=== PATIENT | female | born 1980 | race Caucasian/White ===

== ENCOUNTER → 2022-04-16 18:52 | Outpatient (CLI) | payer OTHER, SELFPAY ==
--- NOTE | 2022-04-16 | DI.MRI.S_ITS ---
PROCEDURE: MR KNEE RT WO CON INDICATIONS: RIGHT KNEE PAIN TECHNIQUE: Noncontrast sagittal PD fast spin echo and T2 fast spin echo with fat saturation, sagittal 3-D FLASH with fat saturation; coronal T1 spin echo and PD fast spin echo with fat saturation, and axial PD fast spin echo with fat saturation through the knee. COMPARISON: None. FINDINGS: Image quality: Excellent. There are irregular fluid collections or cysts anterior medial inferior to the knee just anterior to the distal semitendinosus/Gracilis tendon insertions. The largest fluid/cyst measures 1.0 cm AP x 1.3 cm transverse and 1.6 cm cephalocaudal. Several small daughter cysts are seen anterior to the main cyst. Mild soft tissue swelling is noted in the prepatellar/infrapatellar area. Menisci: The medial and lateral menisci demonstrate normal morphology and internal signal. The meniscal root ligaments appear intact. Cruciate ligaments: The anterior and posterior cruciate ligaments appear intact. Medial structures: The medial collateral ligament appears intact. The semimembranosus tendon insertions and meniscocapsular junction appear intact. Visualized portions of the pes anserinus tendons appear normal. No abnormal bursal fluid. Lateral structures: The lateral collateral ligament, long and short heads of the biceps femoris tendon appear intact. The popliteus tendon appears normal. Iliotibial band appears normal. Anterior structures: The quadriceps and patellar tendons appear intact. Patellar alignment is normal. No femoral trochlear dysplasia or ventral trochlear prominence. No edema in the infrapatellar fat pad. Bones and cartilage: No bone marrow contusions or fractures. Mild cartilage with preserved overall cartilage thickness. Subchondral cyst formation is noted in the medial facet of femoral trochlea. Joint space: There is small amount of knee joint fluid. No Hawk's cyst. Normal appearing synovial plicae are incidentally noted. IMPRESSION: 1. Small irregular fluid collections or cysts are present below the knee anterior medial to tibia tubercle and just anterior to the distal semitendinosus and gracilis tendon insertions. The largest fluid/cyst measures 1.0 x 1.3 x 1.6 cm. Several small daughter cysts are seen in the vicinity, connected to the main cyst. Nonspecific soft tissue edema is noted in the prepatellar/infrapatellar area. 2. Trace knee joint effusion. 3. Mild tricompartmental cartilage signal degeneration with preserved cartilage thickness. Dictated by: Ling Page M.D. on 04/17/2022 at 8:50 Approved by: Ling Page M.D. on 04/17/2022 at 9:56
== END ==
PROVIDERS: PCP Internal Medicine; Referring Provider Orthopaedic Surgery; Visit Provider Orthopaedic Surgery
DX: M25.561 Pain in right knee (principal); M25.861 Other specified joint disorders, right knee; M25.461 Effusion, right knee
CPT/HCPCS: 73721

== ENCOUNTER 2025-06-13 18:29 | Emergency (ER) | payer OTHER, SELFPAY ==
[2025-06-13] VITALS (17 sets, daily range): BP systolic 111–147; BP diastolic 56–78; PULSE 73–97; RESP 18–22; TEMP 36.6–36.8; O2SAT 98–100; BMI 29.9
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
--- NOTE | 2025-06-13 18:55 | DI.RAD.S_ITS ---
PROCEDURE: XR PELVIS 1-2V INDICATIONS: trauma to left leg TECHNIQUE: 2 view(s) of the pelvis acquired. COMPARISON: None. FINDINGS: Bones: No fractures or dislocations. No suspicious bony lesions. Soft tissues: Visualized bowel gas pattern is normal. No suspicious soft tissue calcifications. IMPRESSION: No visualized acute fracture or dislocation. However, if clinical concern and/or pain persist, short interval imaging followup in 7-10 days is recommended, as occult injury cannot be definitively excluded. Dictated by: Ara Elkins M.D. on 06/13/2025 at 19:37 Approved by: Ara Elkins M.D. on 06/13/2025 at 19:38
--- NOTE | 2025-06-13 18:55 | DI.RAD.S_ITS ---
PROCEDURE: XR FEMUR LT MIN 2V INDICATIONS: Trauma to left leg, ecchymosis to the lateral greater trocha TECHNIQUE: 2 views of the femur were acquired. COMPARISON: [facility], CR, XR TIBIA FIBULA LT 2V, 06/13/2025, 18:54. [facility], CR, XR ANKLE LT MIN 3V, 06/13/2025, 18:54. FINDINGS: Bones: No fractures or dislocations. No suspicious bony lesions. Soft tissues: No suspicious soft tissue calcifications or masses. IMPRESSION: No visualized acute fracture or dislocation. However, if clinical concern and/or pain persist, short interval imaging followup in 7-10 days is recommended, as occult injury cannot be definitively excluded. Dictated by: Ara Elkins M.D. on 06/13/2025 at 19:43 Approved by: Ara Elkins M.D. on 06/13/2025 at 19:43
--- NOTE | 2025-06-13 18:55 | DI.RAD.S_ITS ---
PROCEDURE: XR TIBIA FIBULA LT 2V INDICATIONS: Trauma left lower extremity TECHNIQUE: 2 views of the tibia and fibula were acquired. COMPARISON: [facility], CR, XR FEMUR LT MIN 2V, 06/13/2025, 18:54. FINDINGS: Bones: No fractures or dislocations. No suspicious bony lesions. Soft tissues: No suspicious soft tissue calcifications or masses. IMPRESSION: No visualized acute fracture or dislocation. However, if clinical concern and/or pain persist, short interval imaging followup in 7-10 days is recommended, as occult injury cannot be definitively excluded. Dictated by: Ara Elkins M.D. on 06/13/2025 at 19:44 Approved by: Ara Elkins M.D. on 06/13/2025 at 19:44
--- NOTE | 2025-06-13 18:55 | DI.RAD.S_ITS ---
PROCEDURE: XR KNEE LT 1TO2V INDICATIONS: Trauma to the left lower extremity TECHNIQUE: 2 views of the knee were acquired. COMPARISON: [facility], CR, XR TIBIA FIBULA LT 2V, 06/13/2025, 18:54. FINDINGS: Bones: No fractures or dislocations. No suspicious bony lesions. Soft tissues: No joint effusion. No suspicious soft tissue calcifications. IMPRESSION: No visualized acute fracture or dislocation. However, if clinical concern and/or pain persist, short interval imaging followup in 7-10 days is recommended, as occult injury cannot be definitively excluded. Dictated by: Ara Elkins M.D. on 06/13/2025 at 19:42 Approved by: Ara Elkins M.D. on 06/13/2025 at 19:42
--- NOTE | 2025-06-13 18:55 | DI.RAD.S_ITS ---
PROCEDURE: XR ANKLE LT MIN 3V INDICATIONS: Trauma left lower extremity TECHNIQUE: 3 views of the ankle were acquired. COMPARISON: [facility], CR, XR TIBIA FIBULA LT 2V, 06/13/2025, 18:54. FINDINGS: Bones: No fractures or dislocations. Ankle mortise is normally aligned. No suspicious bony lesions. Soft tissues: No tibiotalar joint effusion. Achilles tendon appears normal. IMPRESSION: No visualized acute fracture or dislocation. However, if clinical concern and/or pain persist, short interval imaging followup in 7-10 days is recommended, as occult injury cannot be definitively excluded. Dictated by: Ara Elkins M.D. on 06/13/2025 at 19:42 Approved by: Ara Elkins M.D. on 06/13/2025 at 19:43
[2025-06-13] MEDS: HYDROMORPHONE 1 MG INJ 0.5 MG IV (19:05)
[2025-06-13] MEDS: ONDANSETRON 4 MG/2 ML INJ IV (19:05)
[2025-06-13 19:06] LABS: Add Manual Diff / Slide Review NO; Hematocrit 44.8 % (36-46); Hemoglobin 15.0 g/dL (12.0-16.0); Lymphocytes Absolute Auto 2200 /uL (1100-4500); Mean Corpuscular HGB Conc 33.5 % (30-36); Mean Corpuscular Hemoglobin 30.2 PG (26-34); Mean Corpuscular Volume 90.1 fL (80-100); Platelet Count 454 X10^3/uL (150-400)
[2025-06-13 19:07] LABS: INR 1.0 (0.9-1.3); Prothrombin Time 11.1 SECONDS (9.4-12.5)
[2025-06-13 19:10] LABS: PTT Partial Thromboplastin Tim 26 SECONDS (25.1-36.5); Pregnancy Test Serum,Qual Negative (Negative)
[2025-06-13 19:12] LABS: Alanine Aminotransferase 21 IU/L (<35); Albumin 5.0 g/dL (3.5-5.0); Albumin Globulin Ratio 1.3 (1.0-2.8); Alkaline Phosphatase 65 U/L (38-126); Blood Urea Nitrogen 9 mg/dL (7-17); Calcium 9.6 mg/dL (8.4-10.2); Carbon Dioxide 22 mmol/L (22-32); Chloride 104 mmol/L (98-107); Estimated Glomerular Filt Rate > 60 mL/min (>60); Ethanol (ETOH) < 10 mg/dL (<10); Globulin 3.8 g/dL (1.7-4.1); Glucose 104 mg/dL (70-99); HEMOLYSIS 20 (0-50); Lipase 110 U/L (23-300); Potassium 3.7 mmol/L (3.4-5.1); Sodium 138 mmol/L (137-145); Total Protein 8.8 g/dL (6.3-8.2)
--- NOTE | 2025-06-13 19:59 | DI.CT.S_ITS ---
PROCEDURE: CT ANGIO LE LT INDICATIONS: hematoma to left lateral thigh s/p trauma TECHNIQUE: After the administration of intravenous contrast, 2.5 mm sections acquired from T12 to the feet, with optional delayed image acquisition from the knees to the feet. 3-dimensional maximum intensity projection (MIP) coronal and sagittal reformats, and/or 3-dimensional volume rendering reformatting was then performed. For radiation dose reduction, the following was used: automated exposure control. COMPARISON: None. FINDINGS: Image Quality: Diagnostic. Along the posterior subcutaneous tissues of the upper left lower extremity, there is. Previous attenuation without distinct fluid collection. No contrast blush to suggest active hematoma. No displaced fracture. Intra-abdominal contents are normal. IMPRESSION: Soft tissue stranding along the posterior, lateral thigh without evidence of active hemorrhage. Dictated by: Olegario Delaney M.D. on 06/13/2025 at 20:51 Approved by: Olegario Delaney M.D. on 06/13/2025 at 20:53
[2025-06-13] MEDS: HYDROMORPHONE 1 MG INJ IV (20:09)
[2025-06-13] MEDS: OXYCODONE/APAP 5/325 PREPACK 1 BOTTLE MISC (21:25)
[2025-06-13] MEDS: ONDANSETRON 4 MG ODT PREPACK 1 BOTTLE MISC (21:25)
== END 2025-06-13 21:59 | disposition home or self-care (01) ==
PROVIDERS: Emergency Provider Student in an Organized Health Care Education/Training Program; PCP Internal Medicine
DX: S80.12XA Contusion of left lower leg, initial encounter (principal); W22.8XXA Striking against or struck by other objects, initial encounter
CPT/HCPCS: 36415; 72170; 73552; 73560; 73590; 73610; 73706; 80053; 80320; 83690; 84703; 85025; 85610; 85730; 86850; 86900; 86901; 96374; 96375; 96376; 99284; J1171; J2405; Q9967